=== PATIENT | male | born 1995 | race Caucasian/White ===

== ENCOUNTER 2018-06-19 23:01 | Emergency (ER) | payer BC, SELFPAY ==
[~2018-06-19] VITALS: Ht 188 cm; Wt 120.5 kg
[2018-06-19] MEDS ORDERED: ISOVUE-370 76% 100ML VIAL (Q9967) As Ordered ONE (23:21)
[2018-06-19] MEDS ORDERED: KETOROLAC 30 MG/ML VIAL (J1885) IV ONE (23:30)
[2018-06-19] MEDS ORDERED: NS 1,000 ML IV ONE (23:30)
[2018-06-19 23:52] LABS: BASO # 0.1 10^3/uL (0.0-0.2); BASO % 0.7 % (0.0-1.0); EOS # 0.4 10^3/uL (0.0-0.50); EOS % 3.2 % (0.0-3.0); HEMATOCRIT 45.1 % (42.0-52.0); HEMOGLOBIN 15.9 g/dl (13.5-17.5); LYMPH # 4.2 10^3/uL (1.5-6.5); LYMPH % 35.6 % (24.0-44.0); MEAN CORPUSCULAR HEMOGLOBIN 28.5 pg (27.0-33.0); MEAN CORPUSCULAR HGB CONC 35.3 g/dl (32.0-36.5); MEAN CORPUSCULAR VOLUME 80.8 fl (80.0-96.0); MONO # 1.1 10^3/uL (0.0-0.8); MONO % 9.4 % (0.0-5.0); NEUTROPHILS % 50.8 % (36.0-66.0); PLATELET COUNT, AUTOMATED 324 10^3/uL (150-450); RED BLOOD COUNT 5.58 10^6/uL (4.30-6.10); WHITE BLOOD COUNT 11.7 10^3/uL (4.0-10.0)
[2018-06-20 00:29] LABS: ALBUMIN 4.1 GM/DL (3.2-5.2); ALT/SGPT 49 U/L (12-78); BILIRUBIN,DIRECT < 0.1 MG/DL (0.0-0.2); BILIRUBIN,TOTAL 0.4 MG/DL (0.2-1.0); BLOOD UREA NITROGEN 14 MG/DL (7-18); CALCIUM LEVEL 9.1 MG/DL (8.5-10.1); CARBON DIOXIDE LEVEL 28 MEQ/L (21-32); CHLORIDE LEVEL 102 MEQ/L (98-107); CREATININE FOR GFR 0.92 MG/DL (0.70-1.30); GLOMERULAR FILTRATION RATE > 60.0 (>60); GLUCOSE, FASTING 104 MG/DL (70-100); LIPASE 117 U/L (73-393); POTASSIUM SERUM 3.7 MEQ/L (3.5-5.1); SODIUM LEVEL 139 MEQ/L (136-145); TOTAL PROTEIN 8.3 GM/DL (6.4-8.2)
--- NOTE | 2018-06-20 01:31 | REPVR ---
EXAM: CT Abdomen and Pelvis With Contrast EXAM DATE/TIME: 06/19/2018 11:16 PM CLINICAL HISTORY: 23 years old, male; Pain; Abdominal pain; Localized; Right lower quadrant (rlq); Additional info: Rlq pain TECHNIQUE: Axial computed tomography images of the abdomen and pelvis with intravenous contrast. All CT scans at this facility use at least one of these dose optimization techniques: automated exposure control; mA and/or kV adjustment per patient size (includes targeted exams where dose is matched to clinical indication); or iterative reconstruction. Coronal and sagittal reformatted images were created and reviewed. CONTRAST: 100 ml of iso administered intravenously. COMPARISON: No relevant prior studies available. FINDINGS: Lower thorax: Unremarkable. ABDOMEN: Liver: Unremarkable. Gallbladder and bile ducts: No radiodense gallstones. No biliary ductal dilatation. Pancreas: Unremarkable. Spleen: Unremarkable. Adrenals: Unremarkable. Kidneys and ureters: No mass. No radiodense calculi. No hydronephrosis. Stomach and bowel: No bowel wall thickening. No obstruction. No pneumatosis. Appendix: Normal. PELVIS: Bladder: Unremarkable. Reproductive: Unremarkable. ABDOMEN and PELVIS: Intraperitoneal space: No free fluid. No organized fluid collection. No free air. Bones/joints: No acute osseous abnormality. Soft tissues: Unremarkable. Vasculature: Unremarkable. No aneurysm. Lymph nodes: Small mesenteric lymph nodes, nonspecific in appearance. No pathologically enlarged lymph nodes. IMPRESSION: 1. No CT evidence of acute intra-abdominal or pelvic pathology. 2. Additional findings, as above. Electronically signed by: Alfredo Bailey On 06/20/2018 01:31:45 AM
[2018-06-20] MEDS ORDERED: ONDA4TAB6 PO (01:38)
[2018-06-20 01:44] VITALS: BP 125/73
== END 2018-06-20 01:51 | disposition home or self-care (01) ==
LOC: M ED 23:01
DX: A08.4 Viral intestinal infection, unspecified (principal)
CPT/HCPCS: 74177; 80048; 80076; 81001; 83690; 85025; 96361; 96374; 99284; J1885; Q9967

== ENCOUNTER → 2019-10-25 | Outpatient (CLI) | payer BC ==
[~2019-10-25] MED LIST: ONDA4TAB6 PO
== END ==
LOC: M LABSMTC 12:36
PROVIDERS: ATTEND Family Medicine
DX: Z03.818 Encounter for observation for suspected exposure to other biological agents ruled out (principal); Z11.59 Encounter for screening for other viral diseases

== ENCOUNTER 2021-04-05 13:06 | Emergency (ER) | payer BC ==
[~2021-04-05] VITALS: Ht 190.5 cm; Wt 113.1 kg
--- OUTSIDE RECORDS SUMMARY | 2021-04-05 13:13 | CCD | Continuity of Care Document ---
Author Author Kenrick RIZZO PA Organization Unknown Address [address] [place] [address] [place] [address] Phone [phone] Problems Description No Information Available Social History Type Date Description Comments Sex Unknown Tobacco Use Start: Unknown Never Smoked Cigarettes ETOH Use Denies alcohol use Tobacco Use Start: Unknown Patient has never smoked Smoking Status Reviewed: 04/04/21 Patient has never smoked Allergies and adverse reactions Description No Known Drug Allergies Medications Active Medications SIG Qnty Indications Ordering Provide r Date Ibuprofen 800mg Tablets take one tablet every 6-8hrs with food 50tabs J02.9 Musa Marte JR. 04/04/2021 Immunizations Description No Information Available Vital Signs Date Vital Result Comment 04/04/2021 10:08am BP Systolic 130 mmHg BP Diastolic 84 mmHg Heart Rate 102 /min Respiratory Rate 16 /min O2 % BldC Oximetry 95 % Body Temperature 99.1 F Weight 242.00 lb Height 75 inches 6'3" BMI (Body Mass Index) 30.2 kg/m2 Pain Level 8 06/12/2020 8:41am BP Systolic 150 mmHg BP Diastolic 80 mmHg Heart Rate 78 /min Respiratory Rate 16 /min O2 % BldC Oximetry 99 % Body Temperature 98.6 F Weight 255.00 lb Height 74 inches 6'2" BMI (Body Mass Index) 32.7 kg/m2 Pain Level 1 Results Description No Information Available Procedures Date Code Description Status 04/04/2021 37930 Office/Outpatient Established Lo w MDM 20-29 Min Completed Medical Devices Description No Information Available Encounters Type Date Location Provider Dx Diagnosis Office Visit 04/04/2021 8:35a Main Office HUSSEIN Watt J02 .9 Acute pharyngitis, unspecified Z20.828 Contact w and exposure to ot h viral communicable diseases Assessments Date Code Description Provider 04/04/2021 J02.9 Acute pharyngitis, unspecified M HUSSEIN Murray 04/04/2021 Z20.828 Contact with and (fuller spected) exposure to other viral communicable diseases HUSSEIN Watt Plan of Treatment No Information Available Functional Status Description No Information Available Mental Status Description No Information Available Referrals Description No Information Available
--- OUTSIDE RECORDS SUMMARY | 2021-04-05 13:13 | CCD ---
Author Author [facility] Organization [facility] Address Unknown Phone Unavailable Care Team Providers Care Research Project Manager Name Role Phone MATTHIAS, Marialuisa OROZCO PA Unavailable Unavailable LETTIERE, A PAM PA Unavailable Unavailable LETTIERE, A PAM PA Unavailable Unavailable LETTIERE, Marialuisa OROZCO PA Unavailable Unavailable LETTIERE, Marialuisa OROZCO PA Unavailable Unavailable LETTIERE, Marialuisa OROZCO PA Unavailable Unavailable LETTIERE, A PAM PA Unavailable Unavailable LETTIERE, A PAM PA Unavailable Unavailable LETTIERE, A PAM PA Unavailable Unavailable LETTIERE, A PAM PA Unavailable Unavailable LETTIERE, A PAM PA Unavailable Unavailable LETTIERE, A PAM PA Unavailable Unavailable LETTIERE, A PAM PA Unavailable Unavailable LETTIERE, A PAM PA Unavailable Unavailable LETTIERE, A PAM PA Unavailable Unavailable LETTIERE, A PAM PA Unavailable Unavailable LETTIERE, A PAM PA Unavailable Unavailable LETTIERE, A PAM PA Unavailable Unavailable LETTIERE, A PAM PA Unavailable Unavailable LETTIERE, A PAM PA Unavailable Unavailable LETTIERE, A PAM PA Unavailable Unavailable LETTIERE, A PAM PA Unavailable Unavailable LETTIERE, A PAM PA Unavailable Unavailable LETTIERE, A PAM PA Unavailable Unavailable LETTIERE, A PAM PA Unavailable Unavailable LETTIERE, A PAM PA Unavailable Unavailable LETTIERE, A PAM PA Unavailable Unavailable LETTIERE, A PAM PA Unavailable Unavailable LETTIERE, A PAM PA Unavailable Unavailable LETTIERE, A PAM PA Unavailable Unavailable LETTIERE, A PAM PA Unavailable Unavailable HECTOR, ZOE PA Unavailable Unavailable HECTOR, ZOE PA Unavailable Unavailable HECTOR, ZOE PA Unavailable Unavailable HECTOR, ZOE PA Unavailable Unavailable HECTOR, ZOE PA Unavailable Unavailable HECTOR, ZOE PA Unavailable Unavailable HECTOR, ZOE PA Unavailable Unavailable HECTOR, ZOE PA Unavailable Unavailable HECTOR, ZOE PA Unavailable Unavailable HECTOR, ZOE PA Unavailable Unavailable HECTOR, ZOE PA Unavailable Unavailable HECTOR, ZOE PA Unavailable Unavailable HECTOR, ZOE PA Unavailable Unavailable HECTOR, ZOE PA Unavailable Unavailable HECTOR, ZOE PA Unavailable Unavailable HECTOR, ZOE PA Unavailable Unavailable HECTOR, ZOE PA Unavailable Unavailable HECTOR, ZOE PA Unavailable Unavailable HECTOR, ZOE PA Unavailable Unavailable HECTOR, ZOE PA Unavailable Unavailable HECTOR, ZOE PA Unavailable Unavailable HECTOR, ZOE PA Unavailable Unavailable HECTOR, ZOE PA Unavailable Unavailable HECTOR, ZOE PA Unavailable Unavailable HECTOR, ZOE PA Unavailable Unavailable HECTOR, ZOE PA Unavailable Unavailable HECTOR, ZOE PA Unavailable Unavailable HECTOR, ZOE PA Unavailable Unavailable HECTOR, ZOE PA Unavailable Unavailable HECTOR, ZOE PA Unavailable Unavailable HECTOR, ZOE PA Unavailable Unavailable HECTOR, ZOE PA Unavailable Unavailable HECTOR, ZOE PA Unavailable Unavailable HECTOR, ZOE PA Unavailable Unavailable HECTOR, ZOE PA Unavailable Unavailable HECTOR, ZOE PA Unavailable Unavailable Re-disclosure Warning The records that you are about to access may contain information from federally-assisted alcohol or drug abuse programs. If such information is present, then the following federally mandated warning applies: This information has been disclosed to you from records protected by federal confidentiality rules (42 CFR part 2). The federal rules prohibit you from making any further disclosure of this information unless further disclosure is expressly permitted by the written consent of the person to whom it pertains or as otherwise permitted by 42 CFR part 2. A general authorization for the release of medical or other information is NOT sufficient for this purpose. The Federal rules restrict any use of the information to criminally investigate or prosecute any alcohol or drug abuse patient.The records that you are about to access may contain highly sensitive health information, the redisclosure of which is protected by Article 27-F of the [place] State Public Health law. If you continue you may have access to information: Regarding HIV / AIDS; Provided by facilities licensed or operated by the [facility] Office of Mental Health; or Provided by the [facility] Office for People With Developmental Disabilities. If such information is present, then the following [facility] mandated warning applies: This information has been disclosed to you from confidential records which are protected by state law. State law prohibits you from making any further disclosure of this information without the specific written consent of the person to whom it pertains, or as otherwise permitted by law. Any unauthorized further disclosure in violation of state law may result in a fine or fpc sentence or both. A general authorization for the release of medical or other information is NOT sufficient authorization for further disc losure. Family History Family Member Name Family Member Gender Family Member Status Date o f Status Description Data Source(s) Unknown Unknown Problem [facility] ([facility]) Encounters Encounter Providers Location Date Indications Data Source(s ) Outpatient Attender: PAM Dinero Prim diana 04/04/2021 08:35:00 AM EDT [facility] ([facility], [facility]) Outpatient Attender: ZOE Bernala ry 06/12/2020 07:30:00 AM EST [facility] ([facility], [facility]) Medications Medication Brand Name Start Date Product Form Dose Route Admi nistrative Instructions Pharmacy Instructions Status Indications Reaction Description Data Source(s) Ibuprofen 800 MG Oral Tablet Ibuprofen 04/04/2021 12:00:00 AM EDT active [facility] ([facility], [facility]) Insurance Providers Payer name Policy type / Coverage type Policy ID Covered constitution party ID Covered constitution party's relationship to strickland Policy [place] Plan Information [employer] [place] P[place] 302/307 [id number] [place] [place] 302/307 [id number] [employer] Commercial [id number] Family Dependent [id number] [employer] B [id number] C L [id number] SELF PAY ONLY [id number] SP [id number] SELF PAY [employer] [id number] Self Problems, Conditions, and Diagnoses No Information Surgeries/Procedures Procedure Description Date Indications Data Source(s) OFFICE OUTPATIENT VISIT 15 MINUTES 04/04/2021 12:00:00 AM EDT [facility] ([facility]) Results ID Date Data Source [id number] 06/30/2020 12:00:00 AM EST [facility] Name Value Range Interpretation Code Description Data Nae rce(s) Supporting Document(s) SARS-CoV2 Rapid PCR Negative [facility] This lab was ordered by [facility] and reported by [facility]. Procedure Social History Code Duration Value Status Description Data Source(s ) Smoking 04/04/2021 12:00:00 AM EDT Patient has never smoked co mpleted Patient has never smoked [facility] ([facility]) Vital Signs ID Date Data Source UNK Name Value Range Interpretation Code Description Data Source(s) Systolic blood pressure 130 mm[Hg] 130 mm[Hg] [facility] ([facility]) Diastolic blood pressure 84 mm[Hg] 84 mm[Hg] [facility] ([facility]) Heart rate 102 /min 102 /min [facility] ([facility]) Respiratory rate 16 /min 16 /min [facility] ( [facility]) Oxygen saturation in Arterial blood by Pulse oximetry 95 % 95 % [facility] ([facility]) Body temperature 99.1 [degF] 99.1 [degF] [facility] ([facility]) Body weight 242.00 [lb_av] 242.00 [lb_av] [facility] ([facility]) Body height 75 [in_i] 75 [in_i] [facility] ([facility]) 6'3" Body mass index (BMI) [Ratio] 30.2 kg/m2 30.2 k g/m2 [facility] ([facility]) Body mass index (BMI) [Ratio] 32.7 kg/m2 32.7 k g/m2 [facility] ([facility]) Systolic blood pressure 150 mm[Hg] 150 mm[Hg] [facility] ([facility], [facility]) Diastolic blood pressure 80 mm[Hg] 80 mm[Hg] [facility] ([facility], [facility]) Heart rate 78 /min 78 /min [facility] ([facility], [facility]) Respiratory rate 16 /min 16 /min [facility] ( [facility], [facility]) Oxygen saturation in Arterial blood by Pulse oximetry 99 % 99 % [facility] ([facility], [facility]) Body temperature 98.6 [degF] 98.6 [degF] [facility] ([facility], [facility]) Body weight 255.00 [lb_av] 255.00 [lb_av] [facility] ([facility], [facility]) Body height 74 [in_i] 74 [in_i] [facility] ([facility], [facility]) 6'2"
--- OUTSIDE RECORDS SUMMARY | 2021-04-05 13:13 | CCD | Continuity of Care Document ---
Author Author Kenrick RIZZO PA Organization Unknown Address [address] [place] [address] [place] [address] Phone [phone] Problems Description No Information Available Social History [...] Available Procedures Date Code Description Status 04/04/2021 10949 Office/Outpatient Established Lo w MDM 20-29 Min Completed Medical Devices Description No Information Available Encounters Type Date Location Provider Dx Diagnosis Office Visit 04/04/2021 8:35a Main Office HUSSEIN aWtt J02 .9 Acute pharyngitis, unspecified Z20.828 Contact [...]
[2021-04-05] MEDS ORDERED: IBUP80TA (13:16)
[2021-04-05 14:29] LABS: RSV AMPLIFICATION NEGATIVE (NEGATIVE)
[2021-04-05 19:23] VITALS: BP 171/94
[2021-04-05] MEDS ORDERED: MAGICMW SSP (19:43)
[2021-04-05] MEDS ORDERED: MAGIC MOUTHWASH *ED ONLY* 5ML ORAL SYRINGE SS ONE (19:45)
== END 2021-04-05 20:13 | disposition home or self-care (01) ==
LOC: M ED 13:06
DX: B34.1 Enterovirus infection, unspecified (principal)